=== PATIENT | male | born 1965 | race Caucasian/White ===

== ENCOUNTER 2024-01-12 15:12 | Emergency (ER) | payer MEDICAID, OTHER ==
[~2024-01-12] VITALS: Ht 170.2 cm; Wt 77.1 kg
[2024-01-12 15:15] VITALS: BP_SYST 153; PULSE 83; RESP 18; TEMP 98.3; O2SAT 98
[2024-01-12] MEDS: MECLIZINE HCL 25 MG TABLET (ANITVERT) PO ONE (16:16)
[2024-01-12] MEDS: METOCLOPRAMIDE HCL 10 MG/2 ML VIAL IVP ONE (16:17)
[2024-01-12] MEDS: ONDANSETRON HCL 4 MG/2 ML VIAL IVP ONE (16:47)
[2024-01-12 16:49] LABS: ANION GAP 10 (5-15); CALCIUM 8.9 mg/dL (8.4-11.0); CARBON DIOXIDE 24 mmol/L (23-29); CHLORIDE 106 mmol/L (98-107); CREATININE 0.96 mg/dL (0.55-1.30); GFR AFRICAN AMERICAN 103 mL/min (>90); GLUCOSE 135 mg/dL (74-106); POTASSIUM 3.7 mmol/L (3.5-5.1); SODIUM SERUM 140 mmol/L (136-145); UREA NITROGEN, BLOOD 15 mg/dL (8-21)
[2024-01-12 16:52] LABS: GFR NON AFRICAN-AMERICAN 85 mL/min (>90)
[2024-01-12 16:54] LABS: BASOPHILS # (AUTO) 0.1 K/uL (0.0-0.2); EOSINOPHILS # (AUTO) 0.1 K/uL (0.0-0.4); EOSINOPHILS % (AUTO) 2.2 % (0.0-4.0); HEMATOCRIT 43.7 % (36-54); HEMOGLOBIN 15.1 g/dL (14.0-18.0); LYMPHOCYTES # (AUTO) 1.3 K/uL (1.0-5.5); LYMPHOCYTES % (AUTO) 21.6 % (20.5-51.5); MEAN CORPUSCULAR HEMOGLOBIN 31 pg (27-31); MEAN CORPUSCULAR HGB CONC 35 % (32-36); MEAN CORPUSCULAR VOLUME 90 fL (79.0-98.0); MONOCYTES # (AUTO) 0.3 K/uL (0.0-1.0); MONOCYTES % (AUTO) 4.9 % (1.7-9.3); NEUTROPHILS # (AUTO) 4.3 K/uL (1.8-7.7); NEUTROPHILS % (AUTO) 70.3 % (40.0-70.0); PLATELET COUNT (AUTO) 301 K/uL (130-430); RED BLOOD CELL COUNT(AUTO) 4.84 MIL/uL (4.2-6.2); WHITE BLOOD COUNT (AUTO) 6.1 K/uL (4.8-10.8)
[2024-01-12] MEDS ORDERED: MECL-292 PO (18:08)
[2024-01-12] MEDS ORDERED: ONDA-8 TL (18:08)
[2024-01-12 18:23] VITALS: BP_SYST 139; PULSE 88; RESP 20; TEMP 97.6; O2SAT 98
== END 2024-01-12 18:22 | disposition home or self-care (01) ==
LOC: SED 15:12
DX: H81.10 Benign paroxysmal vertigo, unspecified ear (principal); H93.13 Tinnitus, bilateral; H55.09 Other forms of nystagmus; Z79.899 Other long term (current) drug therapy; Z79.2 Long term (current) use of antibiotics
CPT/HCPCS: 99285; 96374; 70450; 96375; 80048; 83880; 85025; 84484; 36415; 93005; J2765; J2405; J8597